=== PATIENT | female | born 1940 | race Native Hawaiian/Other Pacific Islander ===

== ENCOUNTER 2022-09-17 18:23 | Emergency (ER) | payer OTHER ==
[~2022-09-17] VITALS: Ht 160 cm; Wt 62.7 kg
[2022-09-17 18:23] VITALS: TEMP 98.1
[2022-09-17 19:00] LABS: PLATELET COUNT 223 K/uL (152-353)
[2022-09-17 19:07] LABS: POTASSIUM 4.1 mmol/L (3.6-5.2)
[2022-09-17 19:30] VITALS: BP 120/82
[2022-09-18] MEDS ORDERED: TEMA15CA19 PO (08:46)
[2022-09-18] MEDS ORDERED: BONIVA150 MG PO (08:47)
[2022-09-18] MEDS ORDERED: LACTULOSE10 GM/15 M PO (08:48)
[2022-09-18] MEDS ORDERED: DESITIN TOP (08:50)
[2022-09-18] MEDS ORDERED: TRAZ50TA36 PO (08:51)
[2022-09-18] MEDS ORDERED: HYDR25CA25 PO ×2 (08:52→08:54)
[2022-09-18] MEDS ORDERED: BUSPIRONE5 MG PO (08:53)
[2022-09-18] MEDS ORDERED: DIVA125C PO ×2 (08:56→08:57)
[2022-09-18] MEDS ORDERED: RIVASTIGMINE1.5 MG PO ×2 (08:58→09:03)
[2022-09-18] MEDS ORDERED: METO25TA2 PO (09:04)
== END 2022-09-17 20:00 | disposition still patient (30) ==
LOC: ED 18:36
PROVIDERS: Emergency Medicine
DX: R45.1 Restlessness and agitation (principal); N39.0 Urinary tract infection, site not specified; Z11.52 Encounter for screening for COVID-19; Z04.6 Encounter for general psychiatric examination, requested by authority
CPT/HCPCS: 36415; 80053; 81000; 85027; 87077; 87086; 87088; 87186; 87635; 93005; 96372; 99283; J1630; U0003